=== PATIENT | female | born 1995 | race Caucasian/White ===

== ENCOUNTER → 2019-10-03 | Outpatient (CLI) | payer BC ==
--- NOTE | 2019-10-03 08:59 | REP ---
COMPLETE ABDOMINAL SONOGRAPHY: HISTORY: Right upper quadrant pain on and off for years. No comparison study. FINDINGS: Scanning through right upper quadrant of the abdomen demonstrates a normal sized thin-walled gallbladder. There is a 5 mm echogenic focus in the gallbladder neck casting acoustic shadowing suggestive of a gallstone. Common bile duct is normal measuring 0.2 cm in greatest diameter. No focal liver lesion is seen. Liver is not felt to be enlarged. Pancreas is normal. A normal caliber aorta is seen, 2.2 cm in greatest AP dimension proximally. A homogeneous normal size spleen is noted 8.7 cm in greatest diameter. Renal cortical echogenicity pattern is normal bilaterally and renal contours are smooth. Right renal dimensions are 11.8 x 5.9 x 3.5 cm. Left kidney measures 11.8 x 4.3 x 5.7 cm. There is no evidence of ascites. IMPRESSION: Cholelithiasis, single gallstone in the neck of the gallbladder. Otherwise negative complete abdominal sonography. Electronically Signed by Lion Weber MD 10/03/2019 09:23 A
== END ==
LOC: M RAD 07:43
PROVIDERS: ATTEND Physician Assistant
DX: R10.11 Right upper quadrant pain (principal)

== ENCOUNTER → 2019-11-15 | Outpatient (CLI) | payer BC ==
[~2019-11-15] MED LIST: APRITAB PO; HYDR-3713 PO; OMEP-218 PO; SUMA25TA3 PO
== END ==
LOC: M LABSMTC 09:27
PROVIDERS: ATTEND Anesthesiology
DX: Z01.818 Encounter for other preprocedural examination (principal); Z11.59 Encounter for screening for other viral diseases

== ENCOUNTER 2019-11-18 08:39 | Day surgery (SDC) | payer BC ==
[~2019-11-18] VITALS: Ht 162.6 cm; Wt 62.6 kg
[~2019-11-18 08:39] MED LIST changes: -HYDR-3713 PO; +LIDOCAINE 1% MDV 20ML VIAL SQ PRN; +LR 1,000 ML IV ONE
[2019-11-18] MEDS ORDERED: dexameTHASONE 4 MG/ML 1ML VIAL (J1100 PER 1MG) As Ordered ONE (08:59)
[2019-11-18] MEDS ORDERED: fentaNYL 100 MCG/2 ML INJECTION (J3010) As Ordered ONE ×3 (08:59→12:53)
[2019-11-18] MEDS ORDERED: ROCURONIUM BROMIDE 50 MG/5 ML VIAL As Ordered ONE ×2 (08:59→11:39)
[2019-11-18] MEDS ORDERED: LIDOCAINE 2% 100MG/5ML SDV (FOR ANES.) As Ordered ONE (08:59)
[2019-11-18] MEDS ORDERED: ONDANSETRON 4MG/2ML VIAL As Ordered ONE ×2 (08:59→12:52)
[2019-11-18] MEDS ORDERED: propofoL 200 MG/20 ML VIAL As Ordered ONE (08:59)
[2019-11-18] MEDS ORDERED: MIDAZOLAM INJ 2MG/2ML VIAL (J2250 PER 1MG) As Ordered ONE (08:59)
[2019-11-18] MEDS ORDERED: BUPIVACAINE HCL 0.25% 30ML VIAL As Ordered ONE (10:01)
[2019-11-18] MEDS ORDERED: ACETAMINOPHEN 1000MG 100ML IV BTL (OFIRMEV) (J0131 PER 10MG) As Ordered ONE (11:17)
[2019-11-18] MEDS ORDERED: KETOROLAC 60 MG/2 ML VIAL As Ordered ONE (11:23)
[2019-11-18] MEDS ORDERED: SUGAMMADEX SODIUM 500 MG/5 ML VIAL (BRIDION) As Ordered ONE (11:23)
[2019-11-18] MEDS ORDERED: ESMOLOL INJ 100MG/10ML VIAL As Ordered ONE (11:49)
[2019-11-18] MEDS ORDERED: PERCOCET 5MG/325MG TAB As Ordered ONE (12:53)
[2019-11-18] MEDS ORDERED: METOCLOPRAMIDE INJ 10MG/2ML VIAL (J2765 PER 1) As Ordered ONE (12:53)
[2019-11-18] MEDS ORDERED: oxyCODONE 5MG TAB As Ordered ONE (12:54)
[2019-11-18] MEDS: oxyCODONE 5MG TAB PO PRN ×2 (12:55→13:28)
[2019-11-18] MEDS: fentaNYL 100 MCG/2 ML INJECTION (J3010) IV PRN ×4 (12:55→13:26)
[2019-11-18] MEDS ORDERED: HYDR-3713 PO (12:57)
[2019-11-18] MEDS ORDERED: LR 1,000 ML IV SCH (13:00)
[2019-11-18] MEDS ORDERED: ONDANSETRON 4MG/2ML VIAL IV PRN (13:00)
[2019-11-18] MEDS ORDERED: METOCLOPRAMIDE INJ 10MG/2ML VIAL (J2765 PER 1) IV PRN (13:00)
[2019-11-18] MEDS ORDERED: HYDROMORPHONE HCL 0.5 MG/ 0.5 ML SYRINGE (J1170 PER 1) IV PRN (13:00)
[2019-11-18] MEDS ORDERED: NORCO, ANEXSIA 5/325MG TABLET (HYDROcodone/ACETAMINOPHEN) PO PRN (13:15)
[2019-11-18 15:50] VITALS: BP 117/54
[2019-11-18] MEDS ORDERED: IBUPROFEN 400 MG TAB PO PRN (18:00)
[2019-11-18] MEDS ORDERED: ACETAMINOPHEN TAB 650MG DOSE (2X325MG) PO PRN (18:00)
--- NOTE | 2019-11-20 12:46 | RO ---
DATE OF PROCEDURE: 11/18/2019 PREOPERATIVE DIAGNOSIS: Symptomatic cholelithiasis. POSTOPERATIVE DIAGNOSIS: Symptomatic cholelithiasis. PROCEDURE PERFORMED: Laparoscopic cholecystectomy. SURGEON: Dr. Mario Quinones WASHROOM OPERATOR: ANESTHESIA: General. INDICATIONS FOR PROCEDURE: The patient is a pleasant 24-year-old woman who recently suffered an episode of severe upper abdominal pain. Her evaluation included a gallbladder ultrasound which revealed a gallstone in the gallbladder neck. Her symptoms subsided and she is now for a laparoscopic cholecystectomy. OPERATIVE PROCEDURE: The patient was brought to the operating room and placed on the table in a supine position. She was placed under general endotracheal anesthesia. The patient's abdomen was prepped and draped in a sterile fashion. 0.25% Marcaine was infiltrated at the trocar sites as needed. Initially, a short incision was made in the midline just at the top of the umbilicus. This was deepened through the fascia. A Veress needle was inserted and after a positive hanging drop test the abdomen was inflated with carbon dioxide gas. After insufflating the abdomen, the fascia was incised in the midline and an 11 mm port was placed without difficulty. The laparoscope was inserted. Initial examination showed a normal-appearing liver. There was very little omental fat. Interestingly, there was a single band of adhesion extending from the anterior abdominal wall just below the level of the umbilicus down to the omentum covering the mid abdominal small bowel. The gallbladder was seen and was not acutely inflamed. Two 5 mm trocars were placed in the right upper quadrant and a third 5 mm trocar was placed in the left upper quadrant. The patient was tilted to a reverse Trendelenburg position and rolled slightly to the left. The gallbladder was grasped and elevated. The gallbladder was not edematous. Dissection was begun at the gallbladder neck. The peritoneum was opened carefully around the gallbladder neck using the hook cautery. The cystic duct and the cholecystic artery were both clearly identified. Both structures were doubly clipped with hemoclips and divided. The gallbladder was then carefully dissected free from the gallbladder bed. The gallbladder was not perforated in the course of dissection. The gallbladder was fairly deeply inset into the undersurface of the liver with a very thin area of liver overlying the distal body and fundus. The gallbladder was placed in an Endopouch when it was freed. The right upper quadrant was irrigated and inspected. No bleeding or bile leakage was identified. The patient was returned to a flat position. The abdomen was deflated and the trocars were all removed. The gallbladder was recovered through the supraumbilical site. Palpation revealed a single 3-4 mm stone within the gallbladder. This was sent for permanent pathology. The fascia at the supraumbilical site was closed with interrupted simple sutures of #2-0 Vicryl. The skin incisions were all closed with buried #4-0 Vicryl and Steri-Strips. Light dressings were applied. The patient tolerated the procedure well without apparent complication. She was awakened in the operating room, extubated and moved to the recovery room in stable condition.
== END 2019-11-18 15:50 | disposition home or self-care (01) ==
LOC: M SDC 08:39
PROVIDERS: ATTEND Surgery
DX: K80.10 Calculus of gallbladder with chronic cholecystitis without obstruction (principal); K21.9 Gastro-esophageal reflux disease without esophagitis; G43.909 Migraine, unspecified, not intractable, without status migrainosus; Z79.899 Other long term (current) drug therapy
CPT/HCPCS: 47562; 81025; 88304; J0131; J1100; J1170; J1885; J2250; J2405; J2765; J3010

== ENCOUNTER → 2023-05-02 | Outpatient (REF) | payer BC ==
[~2023-05-02] MED LIST changes: +HYDR-3713 PO; -LIDOCAINE 1% MDV 20ML VIAL SQ PRN; -LR 1,000 ML IV ONE; +OMEP-173 PO; -OMEP-218 PO
== END ==
LOC: M PLALAB 16:11
PROVIDERS: ATTEND Obstetrics & Gynecology
DX: Z12.4 Encounter for screening for malignant neoplasm of cervix (principal)